=== PATIENT | female | born 1975 | race Caucasian/White ===

== ENCOUNTER 2018-09-21 13:45 | Inpatient (IN) | payer OTHER ==
[~2018-09-21] VITALS: Ht 157.5 cm; Wt 71.7 kg
[~2018-09-21 13:45] MED LIST: NAPROXEN SODIU550 MG PO
[2018-09-21] MEDS ORDERED: LISINOPRIL10 MG PO (16:18)
[2018-09-21] MEDS ORDERED: FOLIC ACID1 MG PO (16:19)
[2018-09-21] MEDS ORDERED: HYDROCHLOROTHIA25 MG PO (16:19)
[2018-09-21] MEDS ORDERED: CRESTOR10 MG PO (16:19)
[2018-09-21] MEDS ORDERED: VITAMIN D310000 UNIT PO (16:20)
[2018-09-25] MEDS ORDERED: CODE1TAB37 PO (07:05)
[2018-09-25] MEDS ORDERED: IBUPROFEN400 MG PO (07:05)
== END 2018-09-25 07:48 | DRG 743 ==
LOC: O/R 09-23 06:00 → OB/GYN 09-23 14:44 → O/R 09-23 15:30 → OB/GYN 09-25 07:48
PROVIDERS: ADMIT Obstetrics & Gynecology
PROC: 0USG4ZZ Reposition Vagina, Percutaneous Endoscopic Approach (ICD-10-PCS; 2018-09-23)
PROC: 0JQC3ZZ Repair Pelvic Region Subcutaneous Tissue and Fascia, Percutaneous Approach (ICD-10-PCS; 2018-09-23)
PROC: 0TJB8ZZ Inspection of Bladder, Via Natural or Artificial Opening Endoscopic (ICD-10-PCS; 2018-09-23)
PROC: 0UT9FZZ Resection of Uterus, Via Natural or Artificial Opening With Percutaneous Endoscopic Assistance (ICD-10-PCS; principal; 2018-09-23 15:30)
DX: D25.1 Intramural leiomyoma of uterus (principal); D25.2 Subserosal leiomyoma of uterus; N81.5 Vaginal enterocele; N84.0 Polyp of corpus uteri